=== PATIENT | female | born 1935 | race Caucasian/White ===

== ENCOUNTER → 2018-02-16 08:57 | Outpatient (CLI) | payer MEDICARE, OTHER, SELFPAY ==
--- NOTE | 2018-02-16 09:15 | RAD_ITS ---
STUDY: X-RAY - PELVIS AND RIGHT HIP REASON FOR EXAM: Female, 82 years old. Lateral hip pain TECHNIQUE: Radiological exam, hip, unilateral, with pelvis when performed; 2 or 3 views. 3 views. COMPARISON: None. FINDINGS: There is a non-specific bowel gas pattern. Normal visualized soft tissue structures. There is diffuse demineralization of the osseous structures. There is narrowing with cortical sclerosis and osteophyte formation of the sacroiliac joint consistent with degenerative osteoarthritic changes. Normal bilateral superior and inferior pubic rami. Normal pubic symphysis. Normal bilateral ischial tuberosities. Normal visualized femoral head. Normal acetabulum. There is moderate articular joint space narrowing of the hip. 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 No demonstrated fracture. However, hip and pelvic fractures in patients of this age can be subtle, if there are strong clinical suspicion of a fracture, recommend further evaluation with CT Electronically Signed: Du Cleaning MD at 8:36 EDT , Service support ,
== END ==
PROVIDERS: Family Provider Family Medicine; PCP Family Medicine; Visit Provider Nurse Practitioner Family
DX: M16.11 Unilateral primary osteoarthritis, right hip (principal)
CPT/HCPCS: 73502

== ENCOUNTER → 2018-04-06 13:25 | Outpatient (CLI) | payer MEDICARE, OTHER, SELFPAY | PROVIDERS: Family Provider Family Medicine; PCP Family Medicine; Visit Provider Family Medicine | DX: N63.21 Unspecified lump in the left breast, upper outer quadrant (principal) | CPT/HCPCS: 76642; 77062; 77066; G0279 ==

== ENCOUNTER → 2018-04-06 13:28 | Outpatient (CLI) | payer MEDICARE, OTHER, SELFPAY | PROVIDERS: Family Provider Family Medicine; PCP Family Medicine; Visit Provider Family Medicine | DX: Z00.00 Encounter for general adult medical examination without abnormal findings (principal) ==

== ENCOUNTER → 2018-05-30 11:35 | Outpatient (CLI) | payer MEDICARE, OTHER, SELFPAY | PROVIDERS: Family Provider Family Medicine; PCP Family Medicine; Visit Provider Family Medicine | DX: R19.7 Diarrhea, unspecified (principal) | CPT/HCPCS: 87177; 87209; 87493; 87506 ==

== ENCOUNTER 2018-05-31 10:00 | Outpatient (RCR) | payer MEDICARE, OTHER, SELFPAY ==
--- NOTE | 2018-05-15 11:30 | HP.PTEVAL ---
Patient's Visit Information SONYA DE LA CRUZ is a 83 year old F referred to Physical Therapy by ABILIO Perea with a diagnosis of LUMBAR DDD AND RADIC., RIGHT HIP TROCH BURSITIS AND TENDONITIS AND OA.. Date of Evaluation: 05/15/18 Physical Therapist: Domenica Cruz - Visit Plan Frequency: 2-3x /Week Duration: 4-6 Weeks Plan: POSTURE CORRECTION/STRENGTHENING, INSTRUCTION IN APPROPRIATE BODY MECHANICS AND ACTIVITY MODIFICATIONS. DLS STARTING WITH A NEUTRAL SPINE PROGRESSING ROM TOLERATED. SONYA LE ROM, STRETCHING AND STRENGTHENING. HEP INSTRUCTION. - Subjective Subjective: Work/Leisure: RETIRED. LIKES TO VACATION IN [place] FROM AUG TO NOVEMBER BUT [place]E HAS A LOT OF STEPS. NOVEMBER 2017 HAD A LOT OF RIGHT HIP PAIN DOING THE STEPS. SHE REPORTS SHE WAS ACTUALLY DOING BETTER THEN THAN NOW WITH STEPS. Present symptoms: SONYA LOW BACK AND RIGHT HIP PAIN INTO THIGH. PATIENT OTHERWISE DENIES PAIN, NUMBNESS AND TINGLING. DIFFICULTY IN TERMS OF STRENGTH AND/OR PAIN WITH STANDING AND WALKING INCLUDING STEPS. Present since: RIGHT HIP PAIN: NOVEMBER 2017 LOW BACK: CHRONIC. Pain Scale: WORST 6/10, LEAST 0/10. Currently: 0/10 SITTING IN CLINIC TODAY. WALKING IN PT TODAY 2/10. Commenced as a result of: NO APPARENT REASON. Symptoms at onset: RIGHT HIP/THIGH PAIN LOCATION HAS STAYED THE SAME. Worse: STANDING, WALKING, STEPS. Better: SITTING. Disturbed sleep: NO. Previous history/Previous treatment: PATIENT REPORTS SHE WAS GETTING SOME PHYSICAL THERAPY IN [place] FOR BALANCE AND AT ABOUT THE FOURTH APPOINTMENT HER RIGHT HIP STARTED HURTING AND SHE HAS BEEN DEALING WITH IT ALL SUMMER. DR. BRODY DIAGNOSED HER WITH BURSITIS AND SHE HAS HAD 3 INJECTIONS THAT HELPED SOME TEMPORARILY ONLY. HER LAST INJECTION WAS A MONTH AGO. SHE REPORTS ALL 3 OF THESE INJECTIONS WERE IN HER HIP BUT TWO OF THEM WERE JUST IN THE OFFICE - THE OTHER ONE THEY PUT HER TO SLEEP FOR. NO BACK SURGERY BUT MAYBE EMMY'S IN LOW BACK A COUPLE YEARS AGO BUT THEY NEVER LASTED LONG. Coughing/sneezing/straining: NEGATIVE. Gait: DISTANCE LIMITED. NO AD. GETS HARDER TO WALK AND MORE PAINFUL THE FURTHER SHE GOES. PATIENT FEELS LIKE SHE IS LIMPING PRETTY MUCH ALL THE TIME NOW ON THAT RIGHT LE. Difficulty initiating urinatin: NO. Accidents: NO. PATIENT DENIES ANY FALLS. Unexplained weight loss: NO. Imaging: IMPRESSION: Demineralization of the osseous structures with right hip arthrosis. No. demonstrated fracture. However, hip and pelvic fractures in patients of. this age can be subtle, if there are strong clinical suspicion of a. fracture, recommend further evaluation with CT. PMH: HTN, MILD DEPRESSION. Recent major surgery: UNREMARKABLE. OTHER: PATIENT REPORTS SHE TRIED STOPPING THE SILVER SNEAKER CLASS BUT IT DIDN'T HELP SO SHE RESUMED 2 TIMES A WEEK. SHE USE TO COME 4 TIMES A WEEK BEFORE HER RIGHT HIP STARTED HURTING. - Objective Sitting/Standing Posture: POOR. RIGHT SHOULDER HIGHER THAN LEFT. RIGHT ILIAC CREST HIGHER THAN LEFT. Lordosis: REDUCED. Lateral shift: NO. Relevant shift: ? SCOLIOSIS. Active Correction of posture: NE. Other Observations: INDEP GAIT INTO PT WITHOUT ANY AD'S AND A MILD LIMP ON THE RIGHT LE. PATIENT IS ABLE TO INDEP'LY TRANSFER FROM SIT TO STAND WITHOUT UE ASSIST. SHE IS ABLE TO SLS ON EACH LE X APPROX 5 SEC WITHOUT UE ASSIST AND TESTING ON RIGHT LE ONLY MILDLY INCREASES PATIENTS C/O RIGHT HIP PAIN. INDEP GAIT UP STEPS WITH STEP TO PATTERN LEADING WITH LLE AND ONE HR. TRYING TO GO UP WITH RIGHT LE FIRST IS PAINFUL AND DIFFICULT WITH GREAT DEPENDENCE ON HR. SHE IS ABLE TO DESCEND STEPS RECIPCICALLY WITH ONE HR WITHOUT SIGNIFICANT DEVIATION AND MINIMAL DEPENDENCE ON HR. Motor deficit: SONYA LE STRENGTH GROSSLY 4/5 WITH MMT'ING EXCEPT RIGHT HIP AND KNEE 4-/5. Sensory deficit: SONYA LE LIGHT TOUCH SENSATION APPEARS INTACT AND SYMMETRICAL. ROM deficit: PATIENT HAS TIGHTNESS IN SONYA HIPS PRETTY SYMMETRICALLY INTO FLEX, EXT, ABD, IR AND ER AND ROM TESTING OF SONYA HIPS PRODUCES INCREASED PAIN IN THE RIGHT HIP ONLY. Reflexes: SONYA LE'S 2/3. Dural Signs: NEGATIVE SONYA LE DURAL SIGNS. Lumbar mvmt loss: flex - NIL. ext - KEITH. R SG - KEITH. L SG - KEITH. PATIENT DENIES INCREASED BACK OR HIP PAIN WITH LUMBAR ROM TESTING. Core strength: POOR. Palpation: MILD TENDERNESS WITH PALPATION OF SONYA SI JOINT REGIONS, RIGHT GREATER TROCH AND PROXIMAL 1/2 OF RIGHT LATERAL THIGH. OTHER: POSITIVE SONYA DEWEY TESTS RIGHT > LEFT - Goals Goal 1:: DECREASE C/O LOW BACK AND RIGHT HIP PAIN Goal Time Frame: 4-6 Weeks Goal 2:: IMPROVE STANDING AND WALKING FUNCTION INCLUDING ON STAIRS. Goal Time Frame: 4-6 Weeks Goal 3:: INSTRUCT IN PROPHYLAXIS Goal Time Frame: 4-6 Weeks - Rehabilitation Potential Rehabilitation Potential: Fair - Anticipated Interventions Patient/Client Instruction: Educate patient on: Plan of Care, Risk Factors, Benefits of Fitness Program For the Purpose of:: To improve self management Therapeutic Exercise to Include: Strength training, Body mechanics, Postural training, Flexibilty training, Gait and locomotor training, In an aquatic setting, Active ROM, Dynamic Lumbar Stabilization Comment: TRY LAND FIRST. CONSIDER AQUATIC THERAPY. For the Purpose of:: To decrease pain, To increase ROM, To improve muscle performance and motor function, To increase tolerance to activity/condition/position, To improve ability of physical actions for home/community/work/leisure, To improve gait and locomotor functions Cryotherapy (ice pack, ice massage): Yes Thermo therapy (hot pack): Yes Ultrasound (thermal/non thermal): Yes For the Purpose of:: To decrease pain, To decrease swelling/inflammation, To increase ROM, To improve nutrient delivery to tissue Thank you for the opportunity to evaluate your patient. For Medicare and Medicare HMO plans, please review the plan of care and approve it. It will need to be FAXED BACK to us at [phone] for Medicare purposes. Please let me know if there are questions or concerns regarding this plan of care. Physician Signature: Date:
--- NOTE | 2018-05-31 10:43 | HP.PTDCSUM ---
HP - PT D/C Summary It has been my pleasure to treat SONYA DE LA CRUZ under orders from ABILIO Perea, for the diagnosis of LUMBAR DDD AND RADIC., RIGHT HIP TROCH BURSITIS AND TENDONITIS AND OA. for a total of 7 visit(s). Discharge Date: Please see the following information for a summary of their discharge status. - Subjective Subjective: PATIENT REPORTS SHE HAD A LIGHT LAZER TREATMENT [facility] AFTER PT TUESDAY. AT THIS POINT SHE REPORTS SHE HASN'T SEEN A DIFFERENCE IN HER PAIN. SHE IS PLANNING TO TRY ABOUT 6 LIGHT LAZER TREATMENTS WITH ANOTHER ONE PENDING TODAY. PATIENT REPORTS SHE HAS BEEN DOING ALL OF THE HOME EX'S WITHOUT DIFFICULTY LONG SHE IS CAREFUL WITH THE CLAMS AND THE STANDING HIP ABD. OVER-ALL, PATIENT IS REPORTING NO CHANGES SINCE STARTING PT - Pain LOW BACK Pain Intensity (Out of 10): 0 RIGHT HIP/THIGH Pain Intensity (Out of 10): 2 RIGHT LEG Pain Intensity (Out of 10): 0 - Objective Objective/Function: UPON EXAM TODAY, THERE ARE NO SIGNIFICANT CHANGES SINCE INITIAL EVAL. Motor deficit: SONYA LE STRENGTH GROSSLY 4/5 WITH MMT'ING EXCEPT RIGHT HIP AND KNEE 4-/5. Sensory deficit: SONYA LE LIGHT TOUCH SENSATION APPEARS INTACT AND SYMMETRICAL. ROM deficit: PATIENT HAS TIGHTNESS IN SONYA HIPS PRETTY SYMMETRICALLY INTO FLEX, EXT, ABD, IR AND ER AND ROM TESTING OF SONYA HIPS PRODUCES INCREASED PAIN IN THE RIGHT HIP ONLY. Dural Signs: NEGATIVE SONYA LE DURAL SIGNS. Lumbar mvmt loss: flex - NIL. ext - KEITH. R SG - KIETH. L SG - KEITH. PATIENT DENIES INCREASED BACK OR HIP PAIN WITH LUMBAR ROM TESTING. Core strength: POOR. Palpation: MILD TENDERNESS WITH PALPATION OF THE RIGHT GREATER TROCH AND PROXIMAL 1/2 OF RIGHT LATERAL THIGH. ALSO MILD TENDERNESS IN DISTAL RIGHT IT BAND REGION. OTHER: POSITIVE DEWEY TESTS RIGHT. THIS PT RECOMMENDS PHYSICIAN FOLLOW UP DUE TO LACK OF PROGRESS. - Goals Goal 1:: DECREASE C/O LOW BACK AND RIGHT HIP PAIN Goal Progress: Not Progressing Goal 2:: IMPROVE STANDING AND WALKING FUNCTION INCLUDING ON STAIRS. Goal Progress: Not Progressing Goal 3:: INSTRUCT IN PROPHYLAXIS Goal Progress: Not Progressing - Plan Plan: D/C DUE TO LACK OF PROGRESS AND INDEP HEP. PATIENT AGREEABLE. - D/C Information If there are questions or concerns regarding this patient's physical therapy, please feel free to call me at [phone]. Thank you for the referral of this patient. Sincerely, Domenica Cruz
== END 2018-05-31 19:00 | disposition home or self-care (01) ==
LOC: PT 10:00
PROVIDERS: Family Provider Family Medicine; PCP Family Medicine; Referring Provider Nurse Practitioner Family; Visit Provider Nurse Practitioner Family
DX: M51.37 Other intervertebral disc degeneration, lumbosacral region (principal); M70.61 Trochanteric bursitis, right hip; M54.17 Radiculopathy, lumbosacral region; M79.10 Myalgia, unspecified site; M16.11 Unilateral primary osteoarthritis, right hip
CPT/HCPCS: 97035; 97110; 97140; 97162; 97530

== ENCOUNTER → 2018-12-11 15:02 | Outpatient (CLI) | payer MEDICARE, SELFPAY ==
--- NOTE | 2018-12-11 15:32 | CT_ITS ---
STUDY: CT ABDOMEN AND PELVIS WITH CONTRAST REASON FOR EXAM: Female, 83 years old. Right lower quadrant pain RADIATION DOSAGE (If Supplied By Facility): CTDIvol = ( 14.50 ) mGy, DLP = ( 541.06 ) mGycm TECHNIQUE: Transaxial images were obtained from the dome of the diaphragm to the symphysis pubis without oral contrast. 100 IV/Oral Isovue 300 was administered. Sagittal and coronal images were reconstructed. Individualized dose optimization techniques were used for this CT. COMPARISON: None. FINDINGS: Volume loss of the visualized left lung base with basilar atelectasis. The visualized portions of the heart are within normal limits. 5 mm or less cysts in the liver. Normal gallbladder and extrahepatic biliary system. Normal spleen. Normal pancreas. Normal bilateral adrenal glands. Normal right kidney. Normal left kidney. Small hiatal hernia. Normal small intestine. Diverticulosis of the colon. Questionable focal segmental circumferential narrowing of the colon at the hepatic flexure versus focal contraction. Correlate with colonoscopy if needed. The appendix is visualized and appears normal. Normal abdominal aorta. Normal inferior vena cava. Normal retroperitoneum. Normal urinary bladder. Normal uterus. Small fatty umbilical hernia. Mild degenerative vertebral changes. Moderate levoscoliosis. CT/Abdomen/Pelvis WITH Contrast IMPRESSION: Colonic diverticulosis. Small hiatal hernia. Questionable subsegmental cervical fracture narrowing of the colon at hepatic flexure versus contraction. Calling colonoscopy if needed. Small fatty umbilical hernia. Probable small hepatic cysts. Electronically Signed: Tru Moody DO at 18:13 EDT Tel [phone], Service support ,
[2018-12-11 17:51] LABS: CREATININE FINGERSTICK 1.3 mg/dL (0.55-1.02)
== END ==
PROVIDERS: Family Provider Family Medicine; PCP Family Medicine; Referring Provider Family Medicine; Visit Provider Family Medicine
DX: R10.9 Unspecified abdominal pain (principal)
CPT/HCPCS: 74177; Q9967

== ENCOUNTER → 2018-12-15 14:41 | Outpatient (CLI) | payer MEDICARE, OTHER, SELFPAY | PROVIDERS: Family Provider Family Medicine; PCP Family Medicine; Referring Provider Family Medicine; Visit Provider Family Medicine | DX: R19.7 Diarrhea, unspecified (principal) | CPT/HCPCS: 87493; 87506 ==

== ENCOUNTER → 2019-05-15 09:00 | Outpatient (CLI) | payer MEDICARE, OTHER, SELFPAY ==
--- NOTE | 2019-05-15 09:03 | US_ITS ---
STUDY: ABDOMINAL ULTRASOUND - RIGHT UPPER QUADRANT REASON FOR VISIT: Female, 84 years old right upper quadrant pain TECHNIQUE: Ultrasound evaluation of the right upper quadrant was performed with real-time and static tucker-scale imaging. TECHNICAL QUALITY: Limited. Examination limited by bowel gas. COMPARISON: None. FINDINGS: Liver: The liver measures 12.6 cm. There is normal echogenicity of the liver. The bile ducts are within normal limits. There is hepatic color flow. The direction of portal flow is hepatopetal. There is no demonstrated mass lesion. Gallbladder: Normal distended gallbladder. The gallbladder wall measures 1.7 mm. There is a negative sonographic Casas's sign. There is no pericholecystic fluid. There are no gallstones. Common Bile Duct (C.B.D.): The common bile duct measures 2.2 mm. Pancreas: Pancreatic tail was obscured by bowel gas. The body and head appeared within normal limits. There is normal echogenicity of the pancreas. There is no demonstrated pancreatic mass or cyst. Right Kidney: Normal size of the right kidney. The right kidney measures 10.3 x 4.7 x 5.4 cm. Normal renal cortex. The right cortex measures 1.3 cm. There is no demonstrated renal mass or cyst. There is no right hydronephrosis. US/Abdomen Limited IMPRESSION: The pancreatic tail was obscured by bowel gas. The remainder of the study is within normal limits. Electronically Signed: Reji Landaverde MD at 17:01 EDT , Service support ,
== END ==
PROVIDERS: Family Provider Family Medicine; PCP Family Medicine; Referring Provider Family Medicine; Visit Provider Family Medicine
DX: R10.11 Right upper quadrant pain (principal)
CPT/HCPCS: 76705

== ENCOUNTER → 2019-05-16 17:49 | Outpatient (CLI) | payer MEDICARE, SELFPAY | PROVIDERS: Family Provider Family Medicine; PCP Family Medicine; Referring Provider Family Medicine; Visit Provider Family Medicine | DX: R30.0 Dysuria (principal) ==

== ENCOUNTER → 2019-05-28 12:57 | Outpatient (CLI) | payer MEDICARE, OTHER, SELFPAY ==
--- NOTE | 2019-05-28 13:01 | NM_ITS ---
CLINICAL: 84-year-old female with reported history of right upper quadrant abdominal pain. RADIONUCLIDE HEPATOBILIARY SCINTIGRAPHY COMPARISON: Abdominal ultrasound report 05/15/2019 FINDINGS: Following the intravenous administration of 5.1 mCi of 99m Tc Mebrofenin, hepatobiliary images reveal: 1. Relatively prompt and homogeneous radiopharmaceutical concentration is noted by a normal sized liver. No parenchymal defects are identified. 2. Gallbladder activity is identified at 45 minutes post radiopharmaceutical administration. 3. Small intestinal tract is observed at 30 minutes following tracer injection. 4. Washout of the radiopharmaceutical by the hepatic parenchyma appears qualitatively normal. Cholecystokinin (0.02 ug/kg) was administered intravenously over a 30-minute period. The post CCK gallbladder ejection fraction calculated at 20 minutes following Cholecystokinin administration was noted to be 58.0 % (normal greater than 35%). During 30 minutes of post CCK imaging, there is no scintigraphic evidence of reflux of the radiotracer into the common hepatic duct or refilling of the gallbladder. OK/Hepatobilliary Img w/Pharm Int IMPRESSION: 1. NORMAL 99m Tc Mebrofenin hepatobiliary imaging examination with Cholecystokinin. A. A gallbladder ejection fraction calculated to be greater than 35% following the administration of Cholecystokinin makes the probability of functional hepatobiliary disease (gallbladder and/or sphincter of Oddi dyskinesia) and/or organic hepatobiliary disease (chronic acalculous cholecystitis and/or cystic duct syndrome) to be low. (Andrew Sal et al, Journal of Nuclear Medicine 32:1695, 1991). Electronically Signed: Gabe Thacker DO at 22:15 EDT Tel , Service support ,
== END ==
PROVIDERS: Family Provider Family Medicine; PCP Family Medicine; Referring Provider Family Medicine; Visit Provider Family Medicine
DX: R19.7 Diarrhea, unspecified (principal)
CPT/HCPCS: 78227; A9537; J2805

== ENCOUNTER → 2019-06-25 11:52 | Outpatient (CLI) | payer MEDICARE, OTHER, SELFPAY ==
--- NOTE | 2019-06-25 11:58 | RAD_ITS ---
STUDY: X-RAY - UNILATERAL RIBS ( RIGHT ) WITH CHEST REASON FOR EXAM: Female, 84 years old. Pain. TECHNIQUE - RIBS: 4 view(s) of the ribs. TECHNIQUE - CHEST: Single AP portable view of the chest. COMPARISON: None. FINDINGS - RIBS: Normal visualized ribs without a demonstrated fracture. FINDINGS - CHEST: The lungs are clear and expanded. There is no demonstrated pleural abnormality. Normal size heart. Normal mediastinum and harley. Normal visualized pulmonary arteries. There is atherosclerotic calcification of the aortic arch with tortuosity. Normal visualized thoracic spine. There is mild degenerative osteoarthritis of the bilateral shoulders. There is no demonstrated abnormality of the visualized soft tissue structures of the upper abdomen. RAD/Ribs Uni Min 3V w/PA Chest IMPRESSION: RIBS: No distinct right-sided rib fractures noted, right-sided ribs are within normal limits. CHEST: No acute cardiopulmonary disease. Electronically Signed: Carol Ann Ashley MD at 1:57 EST , Service support ,
== END ==
PROVIDERS: Family Provider Family Medicine; PCP Family Medicine; Referring Provider Family Medicine; Visit Provider Family Medicine
DX: M54.9 Dorsalgia, unspecified (principal)
CPT/HCPCS: 71101

== ENCOUNTER 2019-08-10 11:00 | Outpatient (RCR) | payer MEDICARE, OTHER, SELFPAY ==
--- NOTE | 2019-06-12 14:25 | HP.PTEVAL_ITS ---
Patient's Visit Information SONYA DE LA CRUZ is a 84 year old F referred to Physical Therapy by Karen Meier MD with a diagnosis of BACK PAIN. Date of Evaluation: 06/12/19 Physical Therapist: Domenica Cruz PT, Cert MDT - Visit Plan Frequency: 2x /Week Duration: 4-6 Weeks Plan: POSTURE CORRECTION/STRENGTHENING, INSTRUCTION IN APPROPRIATE BODY MECHANICS AND ACTIVITY MODIFICATIONS. DLS STARTING WITH A NEUTRAL SPINE PROGRESSING ROM TOLERATED. SONYA LE ROM, STRETCHING AND STRENGTHENING. HEP INSTRUCTION. *MINIMAL LIFTING > 10 LBS, BENDING, PUSHING, PULLING, TWISTING AND OVER HEAD EXTENSION FOR 4-6 WEEKS. - Subjective Findings: Present symptoms: RIGHT LOW BACK. Present since: ABOUT 9 MONTHS AGO. Pain Scale: WORST 8/10, LEAST 2/10. Currently: 3/10. Commenced as a result of: NO APPARENT REASON. Symptoms at onset: SAME. Worse: MOVING AROUND. WORSE IN THE MORNING. Better: SITTING IN RECLINER, LYING DOWN. Disturbed sleep: NO. Previous history/Previous treatment: PHYSICAL THERAPY FOR LOW BACK IN THE PAST BUT THIS PAIN IS DIFFERENT. H/O [facility]. WENT TO [facility] 6 WEEKS AGO. NO BACK SURGERY. LUMBAR EMMY'S - LAST ONE AT LEAST A COUPLE YEARS AGO. Coughing/sneezing/straining: POSITIVE. Gait: SLOWER AND MAYBE LIMPING ON RIGHT LE AT TIMES DUE TO THIS BACK PAIN. Difficulty initiating urinatin: NO. Accidents: NO. PATIENT DENIES ANY FALLS. Unexplained weight loss: NO. Imaging: ABDOMINAL US AND CAT SCAN RECENTLY WHICH WERE NEGATIVE PER PATIENT REPORT. GALLBLADDER RULLED OUT. NO RECENT BACK IMAGING. PMH: HTN, ANXIETY. OTHER: PATIENT REPORTS SHE ASKED DR. MEIER TO LET HER TRY PHYSICAL THERAPY FIRST BEFORE PAIN MGMT BECAUSE SHE REALLY DOESN'T WANT TO GET THE SHOTS (HISTORY WITH DR. BRODY). PATIENT REPORTS SHE LOST HER IN SEP OF THIS YEAR AND IT HAS BEEN VERY DIFFICULT. - Objective Sitting/Standing Posture: POOR. Lordosis: REDUCED. Active Correction of posture: BETTER. Other Observations: INDEP GAIT AND TRANSFERS WITHOUT ASS ISTIVE DEVICE. Motor deficit: SONYA LE'S GROSSLY 4-5/5 BUT HIPS GROSSLY 4-/5. UNABLE TO TRANSFER FROM FLOOR TO STAND WITHOUT UE ASSIST. Sensory deficit: SONYA LE LIGHT TOUCH SENSATION INTACT AND SYMMETRICAL. ROM deficit: SONYA LE'S WFL. Reflexes: SONYA LE'S 2/3. Dural Signs: POSITIVE RIGHT LE. Thoracic Mvmt Loss: DECREASED SONYA THORACIC ROTATION ROM - MOD - AND INCRASED PAIN WITH TESTING SONYA. Lumbar mvmt loss: flex - MIN - RIGHT BACK UPON RETURN. ext - KEITH - NE. R SG - KEITH - INCREASES RIGHT BACK PAIN. L SG - KEITH - INCREASES RIGHT BACK. Core strength: POOR. Palpation: MILD RIGHT LOWER THORACIC/LUMBAR TENDERNESS. - Goals Goal 1:: DECREASE C/O RIGHT BACK PAIN. Goal Time Frame: 4-6 Weeks Goal 2:: IMPROVE PERSONAL CARE, LIFTING, WALKING, SITTING, STANDING AND HOMEMAKING FUNCTION Goal Time Frame: 4-6 Weeks Goal 3:: INSTRUCT IN PROPHYLAXIS Goal Time Frame: 4-6 Weeks - Rehabilitation Potential Rehabilitation Potential: Fair - Anticipated Interventions Patient/Client Instruction: Educate patient on: Condition, Plan of Care, Risk Factors, Benefits of Fitness Program For the Purpose of:: To improve self management Therapeutic Exercise to Include: Strength training, Body mechanics, Postural training, Dynamic Lumbar Stabilization For the Purpose of:: To decrease pain, To improve muscle performance and motor function, To increase tolerance to activity/condition/position, To improve ability of physical actions for home/community/work/leisure, To improve gait and locomotor functions Cryotherapy (ice pack, ice massage): Yes Thermo therapy (hot pack): Yes Ultrasound (thermal/non thermal): Yes For the Purpose of:: To decrease pain, To decrease swelling/inflammation, To improve nutrient delivery to tissue Thank you for the opportunity to evaluate your patient. For Medicare and Medicare HMO plans, please review the plan of care and approve it. It will need to be FAXED BACK to us at [phone] for Medicare purposes. For Medicare only, by signing this I certify the plan of care. Please let me know if there are questions or concerns regarding this plan of care. Physician Signature: Date:
--- NOTE | 2019-07-12 10:02 | HP.PTREVAL_ITS ---
Karen Meier MD, It has been my pleasure to treat SONYA DE LA CRUZ over the last 10 visits for BACK PAIN. Please see the progress note below for an update on the physical therapy plan of care! Subjective: PATIENT REPORTS THE PAIN IS GETTING BETTER BUT IT STILL JABS HER SOMETIMES. PATIENT REPORTS SHE FEELS GOOD ABOUT THE WATER. WILL CONTINUE PROGR AM WITH MEMBERSHIP. ALSO DOING HEP ONCE A DAY. ABLE TO DO STEPS AT HOME RECIPRICALLY NOW. Objective/Function: PATIENTS PAIN IS NOW IMPROVING AND WOULD BENEFIT FROM CONTINUED PT FOR PROGRESSIONS SHE TRIES TO RESUME EX CLASS AND START INDEP POOL PROGRAM. Motor deficit: SONYA LE'S GROSSLY 4-5/5 BUT HIPS GROSSLY 4-/5. UNABLE TO TRANSFER FROM FLOOR TO STAND WITHOUT UE ASSIST YET. Sensory deficit: SONYA LE LIGHT TOUCH SENSATION INTACT AND SYMMETRICAL. ROM deficit: SONYA LE'S WFL. Reflexes: SONYA LE'S 2/3. Dural Signs: NEGATIVE SONYA LE'S NOW. Thoracic Mvmt Loss: DECREASED SONYA THORACIC ROTATION ROM - MOD - AND INCRASED PAIN WITH TESTING SONYA. Lumbar mvmt loss: flex - NIL - MILD RIGHT BACK UPON RETURN. ext - MOD- NE. R SG - KEITH - INCREASES RIGHT BACK PAIN. L SG - KEITH - INCREASES RIGHT BACK. Core strength: POOR Plan Plan: CONTINUE AQUATIC THERAPY ONE TIME A WEEK FOR PROGRESSIONS. MONITOR RIGHT LOW BACK PAIN. PATIENT IS GOING TO TRY TO RESUME SILVER SNEAKER CLASSES TWO TIMES A WEEK AND AND INDEP POOL PROGRAM ONCE A WEEK. PATIENT AGREEABLE. Goals Goal 1:: DECREASE C/O RIGHT BACK PAIN. Goal Time Frame: 4-6 Weeks Goal 2:: IMPROVE PERSONAL CARE, LIFTING, WALKING, SITTING, STANDING AND HOMEMAKING FUNCTION Goal Time Frame: 4-6 Weeks Goal 3:: INSTRUCT IN PROPHYLAXIS Goal Time Frame: 4-6 Weeks Anticipated Interventions Patient/Client Instruction: Educate patient on: Condition, Plan of Care, Risk Factors, Benefits of Fitness Program For the Purpose of:: To improve self management Therapeutic Exercise to Include: Strength training, Body mechanics, Postural training, Dynamic Lumbar Stabilization For the Purpose of:: To decrease pain, To improve muscle performance and motor function, To increase tolerance to activity/condition/position, To improve ability of physical actions for home/community/work/leisure, To improve gait and locomotor functions Cryotherapy (ice pack, ice massage): Yes Thermo therapy (hot pack): Yes Ultrasound (thermal/non thermal): Yes For the Purpose of:: To decrease pain, To decrease swelling/inflammation, To improve nutrient delivery to tissue Please do not hesitate to contact me at [phone] by phone or if you have questions or concerns regarding this new plan of care! Sincerely, Domneica Cruz, PT, Cert MDT
--- NOTE | 2019-08-10 11:23 | HP.PTDCSUM ---
HP - PT D/C Summary It has been my pleasure to treat SONYA DE LA CRUZ under orders from Karen Meier MD, for the diagnosis of BACK PAIN for a total of 15 visit(s). Discharge Date: 08/10/19 Please see the following information for a summary of their discharge status. - Subjective Subjective: PATIENT REPORTS THERE IS STILL SOMETHING CATCHING IN THERE. SHE IS LEAVING FOR [place]. SHE STATES THAT RIGHT NOW IT IS BEARABLE. IF IT IS STILL THERE WHEN SHE GETS BACK SHE STATES SHE WILL PROBABLY GO TO SEE DR. BRODY. STATES SHE IS GLAD SHE DID THE POOL. FEELS STRONGER BUT IT ISN'T HELPING HER PAIN MUCH. - Pain RIGHT BACK Pain Intensity (Out of 10): 1 - Overall Improvement % Improvement: 40 - Objective Objective/Function: PATIENT TOLERATED AQUATIC THERAPY WELL AND IS INDEP WITH BOTH POOL AND HOME EX PROGRAMS BUT STILL HAS RIGHT BACK PAIN. UPON EXAM TODAY THERE ARE NO SIGNIFICANT OBJECTIVE CHANGES COMPARED TO INITIAL EVAL BUT PATIENT IS FEELING SOME BETTER AND GLAD SHE CAME - Goals Goal 1:: DECREASE C/O RIGHT BACK PAIN. Goal Progress: Goal Met Goal 2:: IMPROVE PERSONAL CARE, LIFTING, WALKING, SITTING, STANDING AND HOMEMAKING FUNCTION Goal Progress: Not Progressing Goal 3:: INSTRUCT IN PROPHYLAXIS Goal Progress: Goal Met - Plan Plan: D/C DUE TO PATIENT LEAVING FOR [place]. RECOMMEND FOLLOW UP WITH DR. MEIER OR DR. BRODY NEEDED. PATIENT AGREEABLE. - D/C Information If there are questions or concerns regarding this patient's physical therapy, please feel free to call me at [phone]. Thank you for the referral of this patient. Sincerely, Domenica Cruz, PT, Cert MDT
== END 2019-08-10 19:00 | disposition home or self-care (01) ==
LOC: PT 11:00
PROVIDERS: Family Provider Family Medicine; PCP Family Medicine; Referring Provider Family Medicine; Visit Provider Family Medicine
DX: M54.9 Dorsalgia, unspecified (principal)
CPT/HCPCS: 97035; 97110; 97113; 97162; 97530

== ENCOUNTER → 2020-03-07 | Outpatient (CLI) | payer MEDICARE, OTHER, SELFPAY | END | disposition home or self-care (01) | LOC: LABSPEC 10:49 | PROVIDERS: PCP Family Medicine; Referring Provider Family Medicine; Visit Provider Family Medicine | DX: R30.0 Dysuria (principal); R35.1 Nocturia | CPT/HCPCS: 87086; 87088 ==

== ENCOUNTER → 2020-04-28 11:14 | Outpatient (CLI) | payer MEDICARE, OTHER, SELFPAY ==
[2020-04-28 13:01] LABS: Absolute Lymphocyte Count 1.01 X10^3/uL (0.83-4.51); Absolute Neutrophil Count 3.7 X10^3/uL (2.0-7.7); Basophil# 0.02 X10^3/uL; Basophil% 0.4 % (0-1); Eosinophil# 0.18 X10^3/uL; Eosinophils% 3.4 % (0-5); Hematocrit 37.4 % (37-47); Hemoglobin 12.4 g/dL (12.0-15.0); Lymphocyte # 1.01 X10^3/ul (4.0); Lymphocyte % 19.2 % (19-41); Mean Corp Hgb Conc 33.2 g/dL (32-36); Mean Corpuscular Hgb 32.2 pg (27.0-32.0); Mean Corpuscular Volume 97.1 fL (81-99); Mean Platelet Vol. 9.6 fl (6.2-12.0); Monocyte# 0.34 X10^3/uL; Monocyte% 6.5 % (0-10); NRBC Flagged by Analyzer 0 % (0-5); Neutrophil % 70.1 % (47-70); Platelet Count 271 K/mm3 (150-450); RBC Distribution Width CV 12.4 % (11.6-14.6); Red Blood Count 3.85 M/mm3 (4.2-5.4); White Blood Count 5.3 K/mm3 (4.4-11.0)
[2020-04-28 13:37] LABS: AST(SGOT) 22 U/L (15-37); Alanine Aminotransfer ALT/SGPT 22 U/L (13-56); Albumin, Serum 3.5 g/dL (3.2-5.0); Alkaline Phosphatase 82 U/L (45-117); Anion Gap 6 (5-15); BUN 19 mg/dL (7-18); BUN/Creat Ratio 25.8 RATIO (10-20); Calcium,Total 8.6 mg/dL (8.5-10.1); Chloride 105 mmol/L (98-107); Creatinine, Serum 0.74 mg/dL (0.55-1.02); EST Glomerular Filtration Rate 80 mL/min (>60); Est Glom Filt Rate - Afr Amer 97 mL/min (>60); Globulin 3.6 g/dL (2.2-4.2); Glucose 89 mg/dL (74-106); Potassium 4.3 mmol/L (3.5-5.1); Protein, Total 7.1 g/dL (6.4-8.2); Sodium Level 138 mmol/L (136-145)
== END ==
PROVIDERS: PCP Family Medicine; Referring Provider Family Medicine; Visit Provider Family Medicine
DX: R06.00 Dyspnea, unspecified (principal)
CPT/HCPCS: 36415; 80053; 84443; 85025

== ENCOUNTER → 2020-05-07 10:57 | Outpatient (CLI) | payer MEDICARE, OTHER, SELFPAY ==
--- NOTE | 2020-05-07 11:00 | ECHOD_ITS ---
Reason For Study: Dyspnea/SOB Procedure This was a 2D Doppler, Color Flow transthoracic echocardiogram. Exam performed in department. Left Ventricle Normal LV size. The estimated ejection fraction is 65 %. No evidence for diastolic dysfunction. No regional wall motion abnormalities noted. Right Ventricle Normal RV size. Normal systolic function. Atria Normal left atrium. Normal right atrium. No doppler evidence for ASD. Mitral Valve There is no mitral valve stenosis. Trivial mitral valve insufficiency. Tricuspid Valve There is no tricuspid stenosis. Trivial tricuspid valve insufficiency. Pulmonary artery systolic pressure is 20-25 mmHg. Aortic Valve Trisinus/trileaflet aortic valve. There is no aortic stenosis. Mild (1+) aortic valve insufficiency. Pulmonic Valve There is no pulmonic valvular stenosis. Trivial pulmonic valve insufficiency. Great Vessels Normal aortic root. Pericardium/Pleural No pericardial effusion. MMode/2D Measurements & Calculations LVIDd: 4.7 cm IVSd: 1.2 cm Ao root diam: 3.6 cm LVIDs: 2.5 cm LVPWd: 0.70 cm LA dimension: 3.7 cm FS: 46.3 % LAV(MOD-bp): 45.3 ml LVAd ap4: 24.3 cm2 SV(MOD-sp4): 47.8 ml LAV(MOD-bp) Indexed: 26.6 ml/m2 EDV(MOD-sp4): 69.6 ml LAV(MOD-sp2): 39.3 ml EDV(sp4-el): 72.9 ml LAV(MOD-sp4): 46.3 ml LVAs ap4: 12.4 cm2 ESV(MOD-sp4): 21.8 ml ESV(sp4-el): 21.1 ml EF(MOD-sp4): 68.7 % EF(sp4-el): 71.0 % SV(sp4-el): 51.8 ml LA A4 area: 17.6 cm2 RA A4 area: 16.2 cm2 Time Measurements MV dec time: 0.24 sec Doppler Measurements & Calculations MV E max juma: 81.5 cm/sec Lat Peak E' Juma: 4.6 cm/sec Med Peak E' Juma: 5.4 cm/sec MV A max juma: 99.3 cm/sec E/E' lat: 17.8 E/E' med: 15.0 MV E/A: 0.82 MV V2 max: 100.9 cm/sec MV P1/2t max juma: 65.4 cm/sec Ao V2 max: 138.7 cm/sec MV max P.1 mmHg MV P1/2t: 103.8 msec Ao max P.7 mmHg MV V2 mean: 43.8 cm/sec MV mean P.94 mmHg MV dec slope: 184.5 cm/sec2 MV V2 VTI: 31.4 cm MVA(P1/2t): 2.1 cm2 AI max juma: 451.2 cm/sec LV V1 max: 107.0 cm/sec PA V2 max: 112.7 cm/sec AI max P.4 mmHg LV V1 max P.6 mmHg AI dec slope: 206.8 cm/sec2 AI P1/2t: 638.9 msec TR max juma: 225.5 cm/sec PI dec slope: 76.9 cm/sec2 TR max P.3 mmHg Interpretation Summary The estimated ejection fraction is 65 %. No evidence for diastolic dysfunction. Trivial mitral valve insufficiency. Mild (1+) aortic valve insufficiency. Ordering Physician: Karen Meier Referring Physician: Karen Meier Performed By: Lalo Reeves RCS
== END ==
PROVIDERS: PCP Family Medicine; Referring Provider Family Medicine; Visit Provider Family Medicine
DX: R06.00 Dyspnea, unspecified (principal)
CPT/HCPCS: 93306

== ENCOUNTER → 2020-07-02 13:59 | Outpatient (CLI) | payer MEDICARE, OTHER, SELFPAY ==
--- NOTE | 2020-07-02 14:03 | RAD_ITS ---
Previous lumbar spine x-rays obtained on 03/22/2013 INDICATION: back pain EXAMINATION/TECHNIQUE: X-RAY - XR Spine Lumbar Min 4 Views COMPARISON: Previous lumbar spine x-rays obtained on 03/22/2013 FINDINGS: Studies of the lumbar spine in 5 projections including obliques was performed. There is moderate levoscoliosis involving the mid lumbar spine in the degree of scoliosis has increased when compared with the previous study obtained on 03/22/2013. No compression fractures are visualized however there is sclerosis of the posterior articular facets at the L3-4, L4-5 and L5-S1 levels due to mild degenerative arthritis. 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 Electronically Signed: Claus Galo, at 10:51 EST Tel , Service support ,
== END ==
PROVIDERS: PCP Family Medicine; Referring Provider Family Medicine; Visit Provider Family Medicine
DX: M54.9 Dorsalgia, unspecified (principal)
CPT/HCPCS: 72110

== ENCOUNTER → 2021-01-01 13:13 | Outpatient (CLI) | payer MEDICARE, SELFPAY ==
--- NOTE | 2021-01-01 13:16 | BI_ITS ---
MAMMOGRAPHY - BILATERAL SCREENING REASON FOR EXAM: Female, 85 years old. Routine annual screening examination. PERTINENT HISTORY: Non-contributory. Remote left excisional breast biopsy. TECHNIQUE: Digital bilateral breast chante (3D mammographic acquisition) in the CC and MLO projections. 2-D mediolateral oblique (MLO) and craniocaudad (CC) views of both breasts were obtained. CAD: Full Field Digital Mammography with Computer Added Detection was performed. COMPARISON: Comparison is made with prior study dated 04/06/2018 and 02/09/2017. FINDINGS: Breast Composition: The breasts are heterogeneously dense, which may obscure small masses. There are no dominant masses or suspicious calcifications. Stable benign-appearing bilateral axillary lymph nodes as well as stable bilateral calcifications. No other significant abnormalities are identified. There has been no significant change since the prior study. BI/SCREENING MAMM (CAD), BILAT IMPRESSION: Stable bilateral screening mammogram. Yearly follow-up mammogram recommended. (A) ASSESSMENT CATEGORY: BIRADS Category 2: Benign. A letter regarding these results will be sent to the patient by the facility within 30 days. Approximately 10% of breast cancers are not detected by mammography. A normal mammogram should not delay biopsy of a clinically suspicious abnormality. [id number] Electronically Signed: Chip Mora MD at 15:03 EDT , Service support ,
== END ==
PROVIDERS: PCP Family Medicine; Referring Provider Family Medicine; Visit Provider Family Medicine
DX: Z12.31 Encounter for screening mammogram for malignant neoplasm of breast (principal)
CPT/HCPCS: 77067

== ENCOUNTER → 2021-07-21 15:29 | Outpatient (CLI) | payer MEDICARE, SELFPAY ==
[2021-07-21 18:02] LABS: Anion Gap 5 (5-15); BUN 17 mg/dL (7-18); BUN/Creat Ratio 23.6 RATIO (10-20); Calcium,Total 9.2 mg/dL (8.5-10.1); Chloride 106 mmol/L (98-107); Cholesterol 223 mg/dL (200); Creatinine, Serum 0.72 mg/dL (0.55-1.02); EST Glomerular Filtration Rate 82 mL/min (>60); Est Glom Filt Rate - Afr Amer 99 mL/min (>60); Glucose 85 mg/dL (74-106); High Density Lipoprotein 70 mg/dL; Sodium Level 139 mmol/L (136-145); Triglycerides 200 mg/dL; Very Low Density Lipoprotein 40 mg/dL (5-40)
== END ==
PROVIDERS: PCP Family Medicine; Visit Provider Family Medicine
DX: I10 Essential (primary) hypertension (principal)
CPT/HCPCS: 36415; 80048; 80061

== ENCOUNTER → 2021-11-27 | Outpatient (CLI) | payer MEDICARE, SELFPAY ==
[2021-11-27 15:39] LABS: Anion Gap 5 (5-15); BUN 15 mg/dL (7-18); BUN/Creat Ratio 19.4 RATIO (10-20); Calcium,Total 8.7 mg/dL (8.5-10.1); Chloride 103 mmol/L (98-107); Cholesterol 223 mg/dL (200); Creatinine, Serum 0.78 mg/dL (0.55-1.02); EST Glomerular Filtration Rate 75 mL/min (>60); Est Glom Filt Rate - Afr Amer 91 mL/min (>60); Glucose 94 mg/dL (74-106); High Density Lipoprotein 63 mg/dL; Potassium 4.2 mmol/L (3.5-5.1); Sodium Level 135 mmol/L (136-145); Triglycerides 182 mg/dL; Very Low Density Lipoprotein 36 mg/dL (5-40)
== END | disposition home or self-care (01) ==
LOC: MFPLAB 11:56
PROVIDERS: PCP Family Medicine; Referring Provider Family Medicine; Visit Provider Family Medicine
DX: I10 Essential (primary) hypertension (principal)
CPT/HCPCS: 36415; 80048; 80061

== ENCOUNTER → 2022-07-07 | Outpatient (CLI) | payer MEDICARE, SELFPAY ==
[2022-07-07 11:33] LABS: Mucous, Urine 0 SEEN /hpf (<or=2+); Squamous Epithelial Cells - UA 0 SEEN /hpf (5-10)
[2022-07-07 12:21] LABS: Color, Urine Straw (Yellow); Glucose, Dipstick Normal (Normal); Ketone-Dipstick Negative (Negative); Leukocyte Esterase-Dipstick 500 /ul (Negative); Nitrite-Dipstick Positive (Negative); Occult Blood-Urine 25 /ul (Negative); Protein-Dipstick 15 mg/dl (Negative); Urine Bilirubin Dipstick Negative (Negative); Urine Clarity Sl. Cloudy (Clear); Urine Urobilinogen Normal (Normal)
[2022-07-07 12:31] LABS: Bacteria 4+ /hpf (None Seen); Red Blood Cells-Urine 10-25 SEEN /hpf (0-5); White Blood Cells 25-50 SEEN /hpf (0-5)
== END | disposition home or self-care (01) ==
LOC: LABSPEC 11:30
PROVIDERS: PCP Family Medicine; Referring Provider Family Medicine; Visit Provider Family Medicine
DX: N39.0 Urinary tract infection, site not specified (principal)
CPT/HCPCS: 81001; 87077; 87086; 87088; 87186

== ENCOUNTER → 2022-08-04 | Outpatient (CLI) | payer MEDICARE, SELFPAY ==
--- NOTE | 2022-08-04 13:44 | BI_ITS ---
MAMMOGRAPHY - BILATERAL SCREENING REASON FOR EXAM: Female, 87 years old. Routine annual screening examination. PERTINENT HISTORY: Bilateral biopsies in 1999. Remote left excisional biopsy. No reported family history of breast cancer. TECHNIQUE: Digital bilateral breast selene (3D mammographic acquisition) in the CC and MLO projections. 2-D mediolateral oblique (MLO) and craniocaudad (CC) views of both breasts were obtained. CAD: Full Field Digital Mammography with Computer Added Detection was performed. COMPARISON: 01/01/2021, 04/06/2018. FINDINGS: Breast Composition: The breasts are heterogeneously dense, which may obscure small masses. There are no dominant masses or suspicious calcifications. Stable bilateral benign-appearing breast calcifications. Stable right breast biopsy marker. No other significant abnormalities are identified. There has been no significant change since the prior study. BI/SCRN MAMM (CAD)W/SELENE BILAT IMPRESSION: Stable bilateral screening mammogram. Yearly follow-up mammogram recommended. (A) ASSESSMENT CATEGORY: BIRADS Category 2: Benign. A letter regarding these results will be sent to the patient by the facility within 30 days. Approximately 10% of breast cancers are not detected by mammography. A normal mammogram should not delay biopsy of a clinically suspicious abnormality. Electronically Signed: Jeet Casillas, at 12:01 EST ,
== END | disposition home or self-care (01) ==
LOC: OPBI 13:43
PROVIDERS: PCP Family Medicine; Visit Provider Family Medicine
DX: Z12.31 Encounter for screening mammogram for malignant neoplasm of breast (principal)
CPT/HCPCS: 77063; 77067

== ENCOUNTER → 2022-11-26 | Outpatient (CLI) | payer MEDICARE, SELFPAY | END | disposition home or self-care (01) | PROVIDERS: PCP Family Medicine; Referring Provider Family Medicine; Visit Provider Family Medicine | DX: N39.0 Urinary tract infection, site not specified (principal) | CPT/HCPCS: 87086; 87088 ==

== ENCOUNTER → 2022-11-30 | Outpatient (CLI) | payer MEDICARE, SELFPAY ==
[2022-11-30 11:24] LABS: Bacteria 0 SEEN /hpf (None Seen); Mucous, Urine 0 SEEN /hpf (<or=2+); Red Blood Cells-Urine 0 SEEN /hpf (0-5)
[2022-11-30 13:11] LABS: Color, Urine Yellow (Yellow); Glucose, Dipstick Normal (Normal); Ketone-Dipstick Negative (Negative); Leukocyte Esterase-Dipstick 25 /ul (Negative); Nitrite-Dipstick Negative (Negative); Occult Blood-Urine Negative /ul (Negative); Protein-Dipstick 15 mg/dl (Negative); Urine Bilirubin Dipstick Negative (Negative); Urine Clarity Sl. Cloudy (Clear); Urine Urobilinogen Normal (Normal); Urine pH 6.5 (5.0 - 8.0)
[2022-11-30 13:22] LABS: Squamous Epithelial Cells - UA 0-5 SEEN /hpf (5-10); White Blood Cells 0-5 SEEN /hpf (0-5)
== END | disposition home or self-care (01) ==
LOC: MFPLAB 11:00
PROVIDERS: PCP Family Medicine; Visit Provider Family Medicine
DX: R39.9 Unspecified symptoms and signs involving the genitourinary system (principal)
CPT/HCPCS: 81001; 87086

== ENCOUNTER 2023-03-12 20:26 | Emergency (ER) | payer MEDICARE, SELFPAY ==
[2023-03-12 20:28] VITALS: BP 169/80; PULSE 64; RESP 16; TEMP 36.2; O2SAT 97; BMI 24.7
[2023-03-12 20:32] VITALS: BP 169/80; PULSE 64; RESP 16; TEMP 36.2; O2SAT 97
--- NOTE | 2023-03-12 20:46 | CT_ITS ---
EXAM: CT ABDOMEN AND PELVIS WITH INTRAVENOUS CONTRAST CLINICAL INDICATION: abdominal pain TECHNIQUE: Helically acquired images were obtained of the abdomen and pelvis with intravenous contrast. This CT exam was performed using one or more of the following dose reduction techniques: automated exposure control, adjustment of the mA and/or kV according to patient size, and/or use of iterative reconstruction technique. CONTRAST: IV 100mL Isovue-370 RADIATION DOSE: CTDIvol = 14.70 mGy, DLP = 595.67 mGy-cm. COMPARISON: December 11, 2018. FINDINGS: LOWER THORAX: Minimal chronic change at the left lung base, bronchiectasis and mild linear scarring. No cardiomegaly. No significant pericardial effusion. ABDOMEN: LIVER: At least 3 tiny subcentimeter presumed hepatic cysts are similar to prior exam. GALLBLADDER AND BILE DUCTS: Unremarkable. No calcified gallstones. No gallbladder distention or wall edema. No intra- or extrahepatic biliary ductal dilation. PANCREAS: Mildly prominent pancreatic duct in the proximal pancreas appears similar to prior exam. No focal cystic or solid mass. SPLEEN: Unremarkable. Normal size without focal cystic or solid mass. ADRENALS: Unremarkable. No nodules. KIDNEYS AND URETERS: Unremarkable. Normal renal size and position. No hydronephrosis. STOMACH AND BOWEL: Small duodenal diverticulum projecting medially from the second part of the duodenum, larger diverticulum projecting superiorly near the ligament of Treitz contains fluid and gas and measures 2.8 cm, it was 1.8 cm. No obvious inflammation. Mildly thick-walled appearance of a few jejunal loops in the left upper quadrant, mildly prominent fluid and gas-filled small bowel loops in the midabdomen. Multiple tabletlike structures layering dependently in the moderately distended fluid-filled cecum. Mild gas, fluid and stool in the colon. Moderate diverticulosis of mildly redundant sigmoid colon. Mild stool in the rectum. PELVIS: APPENDIX: Normal small appendix thought to be seen at least partially on sagittal images. BLADDER: Unremarkable. REPRODUCTIVE: Unremarkable as visualized. No mass. ABDOMEN and PELVIS: INTRAPERITONEAL SPACE: Unremarkable. No ascites or other fluid collection. No free air. BONES/JOINTS: Moderate levoscoliosis centered at L1-2. No suspicious lytic or blastic abnormality. SOFT TISSUES: Similar small fat-containing right inguinal region hernia and slight bulging on the left. VASCULATURE: Mild atherosclerotic changes of aortoiliac vessels, no tobias aneurysm or dissection. LYMPH NODES: Unremarkable. No enlarged lymph nodes. OTHER FINDINGS: Minimal bulging discs, mild vacuum discs. No suspicious bone lesions. CT/Abdomen/Pelvis W IV Cont ONLY IMPRESSION: 1. Mildly thick-walled enhancing urinary bladder may be due to UTI. 2. Moderate fluid in the cecum. Mildly prominent small bowel contents. Cannot exclude mild enterocolitis in the appropriate clinical setting. 3. Larger diverticulum at the duodenal-jejunal junction. No associated inflammation or perforation. 4. Ultrasound with small fat-containing groin hernias, larger on the right. 5. Moderate diverticulosis, no evidence of acute diverticulitis or appendicitis. Electronically Signed: Lyndsey Herrera MD at 23:09 EDT ,
--- NOTE | 2023-03-12 20:48 | EDS_ITS ---
HPI HPI - GI History of Present Illness Chief Complaint: Abd Pain Detail of Chief Complaint: Abdominal pain Informant: patient Abdominal Pain/Flank Pain Maximum Severity: 8/10 Nausea/Vomiting/Emesis GI Symptom: Positive for Nausea and Vomiting Narrative Narrative: Patient presents the emergency department with complaint of abdominal pain that started about 2 hours ago. Patient states that she was at rest watching television when she noted a discomfort to the right lower abdomen. She also felt a lump to that area. She took some Tums and on arrival to the emergency department she vomited x1. She denies fever. She denies diarrhea. She denies blood in the urine or urinary symptoms. She is never had discomfort like this before. Rated her pain an 8 out of 10. [facility] Medical History (Updated 03/12/23 @ 22:[address] Maria Del Carmen Escobar DO) Anxiety Depression HTN (hypertension) Pulmonary embolism Home Medications fluoxetine 10 mg capsule 10 mg PO DAILY 02/26/22 [History Last Taken Unknown] lisinopril 20 mg tablet 20 mg PO DAILY 03/12/23 [History Last Taken Unknown] Allergy/AdvReac Type Severity Reaction Status Date / Time No Known Allergies Allergy Verified 03/12/23 20:33 Family History no significant family his Surgical History no surgical history Social History (Updated 03/12/23 @ 20:41 by Roxanna Britt) Smoking Status: Smoker, status unknown ROS ROS ED Review of Systems ROS Unobtainable: other Constitutional Constitutional ED: Reports lethargy; Denies chills, fever(s), sweats or weight loss Eyes Eyes: Denies blurry vision, change in vision or diplopia ENT ENT ED: Denies rhinorrhea or sore throat Cardiovascular Cardiovascular: Denies chest pain, orthopnea or racing heartbeat Respiratory/Chest Respiratory/Chest: Denies cough, dyspnea, dyspnea on exertion, orthopnea or sputum Gastrointestinal Gastrointestinal: Reports abdominal pain, nausea and vomiting; Denies diarrhea Genitourinary Genitourinary ED: Denies dysuria, hematuria or urinary frequency Musculoskeletal Musculoskeletal: Denies arthralgias, back pain, myalgias or neck pain Integumentary Denies abscess, Abrasions or rash Neurologic Neurologic: Denies headache(s) or weakness Psychiatric Psychiatric: Denies anxiety, depression or suicidal thoughts Endocrine Endocrinology: Denies polydipsia, polyphagia or polyuria Hematologic/Lymphatic Hematologic/Lymphatic: Denies easy bleeding, easy bruising or lymphadenopathy Allergic/Immunologic Allergic/Immunologic ED: Denies mouth swelling, tongue swelling or urticaria EXAM Physical Exam Const Vital Signs: 03/12/23 20:28 03/12/23 20:32 Temperature 97.1 F L 97.1 F L Temperature Source Temporal Temporal Pulse Rate 64 64 Respiratory Rate 16 16 Blood Pressure 169/80 H 169/80 H Blood Pressure Mean 109 109 Pulse Ox 97 97 Oxygen Delivery Method Room Air Room Air Positive well nourished and well developed General Appearance ED: well developed and NAD HEENT Reports TM's clear and moist mucous membranes normocephalic and atraumatic; Negative for trauma or tenderness Tympanic Membrane ED: Yes TM's clear Eyes PERRL and EOMs intact bilaterally General Eye ED: Negative for pale conjunctiva or scleral icterus Neck no lymphadenopathy, supple and no JVD General: Negative for tenderness Chest Wall inspection of chest normal and palpation of chest normal Chest: Negative for tenderness Resp normal respiratory effort and clear to auscultation bilaterally Effort and Inspection: Negative for respiratory distress or pain with movement Auscultation: Negative for rhonchi, wheezes or diminished lung sounds Cardio regular rate, regular rhythm, S1 normal heart sound, S2 normal heart sound and no murmurs Peripheral Pulses: pulses 2+ throughout GI normal to inspection, nondistended, normoactive bowel sounds, soft to palpation, non-distended and no masses GI Narrative: Patient has a soft tissue mass in the right lower quadrant that is tender to palpation. Clinically consistent with a incarcerated hernia. There is no discoloration to the skin noted. Back/Spine no CVA tenderness and no thoracic nor lumbar tenderness Extremity normal to inspection General Extremety ED: Negative for edema General Extremity: Negative for edema Neuro oriented x3, CN's II-XII intact bilaterally, no sensory deficits noted and gait normal Sensorium / Orientation: awake, alert, oriented to person, oriented to place and oriented to time Motor Exam: strength 5/5 throughout and strength abnormal Psych mental status grossly normal Skin no rashes or lesions noted and no wounds MDM MDM MDM Narrative Medical decision making narrative: Patient presents to the emergency department with right lower quadrant abdominal pain x2 hours and 1 episode of vomiting. On exam she is noted to have what I feel is an incarcerated right inguinal hernia. While having patient lie flat I was able to easily manipulate and reduce the hernia. Patient had immediate pain relief with this. CBC with differential obtained was normal. Chemistries unremarkable. Lactate was 1.0. I ordered a CT scan of the abdomen pelvis to evaluate further. Case was discussed with general surgeon on-call Dr. Beverly Christianson prior to CT results. If CT unremarkable she can follow-up as an outpatient for scheduling for operative herniorrhaphy. Patient remained pain- free in the emergency department. Care of patient turned over to evening p phillip awaiting CT results and final disposition. Lab Data Attestation: I reviewed the patient's lab results. Labs: Laboratory Results - last 24 hr 03/12/23 21:00 WBC 8.0 RBC 3.83 L Hgb 12.3 Hct 36.6 L MCV 95.6 MCH 32.1 H MCHC 33.6 RDW Std Deviation 42.5 RDW Coeff of Lamar 12.1 Plt Count 231 MPV 8.9 Immature Gran % (Auto) 0.400 Neut % (Auto) 74.7 H Lymph % (Auto) 15.2 L Talbot % (Auto) 7.6 Eos % (Auto) 1.7 Baso % (Auto) 0.4 Absolute Neuts (auto) 6.0 Absolute Lymphs (auto) 1.22 Nucleated RBC % 0 Sodium 134 L Potassium 4.0 Chloride 101 Carbon Dioxide 27.0 Anion Gap 6 BUN 26 H Creatinine 1.00 Estim Creat Clear Calc 34.87 Est GFR (MDRD) Af Amer 68 Est GFR (MDRD) Non-Af 56 L BUN/Creatinine Ratio 26.0 H Glucose 122 H Lactic Acid 1.0 Calcium 9.0 Discharge Plan Triage Chief Complaint: Abd Pain ED Provider: Maria Del Carmen Escobar Dx/Rx/DC Orders Clinical Impression: Abdominal pain, Inguinal hernia Instructions: ED Hernia (Adult) Prescriptions: No Action fluoxetine 10 mg capsule 10 mg PO DAILY Patient Comments: TAKE 1 CAPSULE BY MOUTH EVERY DAY lisinopril 20 mg tablet 20 mg PO DAILY Patient Comments: TAKE 1 TABLET BY MOUTH EVERY DAY DO NOT TAKE WITH PROPRANOLOL Primary Care Provider: Karen Meier Referrals: Karen Meier MD [Primary Care Provider] - Kristen Christianson MD [Med Staff - Active Staff] - 3-5 Days Disposition Disposition: Home, Self Care
[2023-03-12] MEDS: 0.9% Normal Saline 1,000 ML 125 ML IV (21:07)
[2023-03-12 21:11] LABS: Absolute Lymphocyte Count 1.22 X10^3/uL (0.83-4.51); Basophil# 0.03 X10^3/uL; Basophil% 0.4 % (0-1); Eosinophil# 0.14 X10^3/uL; Eosinophils% 1.7 % (0-5); Hematocrit 36.6 % (37-47); Hemoglobin 12.3 g/dL (12.0-15.0); Lymphocyte # 1.22 X10^3/ul (0.83-4.51); Lymphocyte % 15.2 % (19-41); Mean Corp Hgb Conc 33.6 g/dL (32-36); Mean Corpuscular Hgb 32.1 pg (27.0-32.0); Mean Corpuscular Volume 95.6 fL (81-99); Mean Platelet Vol. 8.9 fl (6.2-12.0); Monocyte# 0.61 X10^3/uL; Monocyte% 7.6 % (0-10); NRBC Flagged by Analyzer 0 % (0-5); Neutrophil # 5.98 X10^3/uL (2.7-7.7); Neutrophil % 74.7 % (47-70); Platelet Count 231 K/mm3 (150-450); RBC Distribution Width CV 12.1 % (11.6-14.6); RBC Distribution Width SD 42.5 fl (35.1-43.9); Red Blood Count 3.83 M/mm3 (4.2-5.4)
[2023-03-12 21:23] LABS: Anion Gap 6 (5-15); BUN 26 mg/dL (7-18); Chloride 101 mmol/L (98-107); EST Glomerular Filtration Rate 56 mL/min (>60); Est Glom Filt Rate - Afr Amer 68 mL/min (>60); Estimated Creatinine Clearance 34.87 ml/min; Glucose 122 mg/dL (74-106); Sodium Level 134 mmol/L (136-145)
[2023-03-12 23:57] VITALS: BP 147/83; PULSE 64; RESP 16; O2SAT 97
== END 2023-03-12 23:59 | disposition home or self-care (01) ==
PROVIDERS: Emergency Provider Emergency Medicine; PCP Family Medicine; Visit Provider Emergency Medicine
DX: K40.30 Unilateral inguinal hernia, with obstruction, without gangrene, not specified as recurrent (principal); I10 Essential (primary) hypertension; F17.200 Nicotine dependence, unspecified, uncomplicated; Z79.899 Other long term (current) drug therapy
CPT/HCPCS: 74177; 80048; 83605; 85025; 96360; 96361; 99282; J7030; Q9967; A4216

== ENCOUNTER → 2023-03-17 | Outpatient (CLI) | payer MEDICARE, SELFPAY | END | disposition home or self-care (01) | LOC: MFPLAB 13:53 → LABSPEC 13:54 | PROVIDERS: PCP Family Medicine; Visit Provider Family Medicine | DX: N39.0 Urinary tract infection, site not specified (principal) | CPT/HCPCS: 87077; 87086; 87088; 87186 ==

== ENCOUNTER 2023-04-06 12:25 | Day surgery (SDC) | payer MEDICARE, SELFPAY ==
[2023-04-06 12:48] VITALS: BP 169/77; PULSE 68; RESP 18; TEMP 36.3; O2SAT 97; BMI 24.9
[2023-04-06] MEDS: Lactated Ringers 1,000 ML 15 ML IV ×2 (12:57→15:05)
--- NOTE | 2023-04-06 13:55 | HP.PCM_ITS ---
History and Physical Date of Admission: 04/06/23 Intake Vital Signs 03/12/2320:28 03/16/2309:37 Height 5 ft 4 in 5 ft 4 in Weight: 143 lb 6 oz BMI 24.6 BP 136/75 H Blood Pressure Location Rt brachial Position Sitting Respiration 16 Pulse 69 Pulse Source Monitor Temp 97.7 F L Temp Source Tympanic Pulse Oximetry (%) 98 Intake Visit Reasons: ED 8-5 INGUINAL HERNIA Chief Complaint: hernia Allergies No Known Allergies Allergy (Verified 03/16/23 09:38) Medications fluoxetine 10 mg capsule 10 mg PO DAILY 02/26/22 [History Confirmed 03/16/23] lisinopril 20 mg tablet 20 mg PO DAILY 03/12/23 [History Confirmed 03/16/23] aspirin 81 mg tablet,delayed release (Adult Low Dose Aspirin) 81 mg PO DAILY 03/16/23 [History Confirmed 03/16/23] multivitamin 1 tab PO DAILY 03/16/23 [History Confirmed 03/16/23] PFSH Medical History Anxiety Depression HTN (hypertension) Pulmonary embolism Social History Smoking Status: Smoker, status unknown HPI HPI HPI: Patient is an 88-year-old female with right inguinal hernia. She was recently in the emergency room with pain and vomiting but it was reduced. She notes that since her hospitalization she has not had any right groin bulging or pain or nausea or vomiting. ROS General General: Yes fatigue; No weight change, appetite, colon cancer, breast cancer or weakness HEENT HEENT: Yes eye injury; No difficulty swallowing, eye surgery, swollen glands or hoarseness Endo Endocrine: No thyroid disease, diabetes mellitus, thyroid cancer, Hair loss, heat intolerance or cold intolerance Skin Skin: No rash or changing moles Breast Breast: No left breast lump, right breast lump, nipple discharge, breast pain, abnormal mammogram, abnormal US or breast enlargement Musc Musculoskeletal: Yes back problems; No arthritis, rheumatoid arthritis, gout or joint pain Cardio Cardiovascular: Yes high blood pressure; No murmur, pacemaker, heart disease, atrial fibrillation, heart attack, heart stent, palpitations, shortness of breat with exertion or chest pain Psych Psychiatric: No depression, anxiety or hearing voices Resp Respiratory: No shortness of breath, No sleep apnea, No cough, No COPD, No asthma, No emphysema and No wheezing Gastro Gastrointestinal: No abdominal pain, No nausea or vomiting, No diarrhea, No constipation, No blood in stool, No acid reflux, Yes hemorrhoids, No ulcers, No gallbladder problem and No black,tarry stools John Hematologic: No blood thinners, No blood disorders, No bleeding, No anemia and No blood clots Neuro Neurologic: No system reviewed and no additional complaints, except as documented, No as per HPI, No abnormal gait, No abnormal hearing, No abnormal movements, No abnormal speech, No behavioral changes, No burning sensations, No confusion, No convulsions, No disequilibrium, No dizziness, No localized weakness, No frequent falls, No headache(s), No lack of coordination, No loss of vision, No memory loss, No numbness, No other visual disturbances, No radicular pain, No restless legs, No sensory deficit, No syncope, No tingling, No tremor(s), No weakness and No other Exam Const General: cooperative Orientation: alert and oriented x3 HENMT Head: normal to inspection Neck Neck: normal visual inspection and full ROM Chest Chest palpation & inspection: normal inspection of the chest Resp Effort & Inspection: normal respiratory effort Auscultation: clear to auscultation bilaterally Cardio Rate: regular rate Rhythm: regular rhythm GI Inspection: non-distended Palpation: soft, hernia indirect inguinal on the right and nontender Skin General: no rashes or lesions noted Neuro General: patient alert and patient oriented x3 Extrem General: full ROM Psych Appearance: grossly normal Mental Status: mental status grossly normal Assessment and Plan Assessment and Plan (1) Inguinal hernia: Status: Acute Qualifiers: Obstruction and gangrene presence: without obstruction or gangrene Laterality: unilateral Recurrence: non-recurrent Qualified Code(s): K40.90 - Unilateral inguinal hernia, without obstruction or gangrene, not specified as recurrent Plan: Patient has a right inguinal hernia which contain fat on the prior CT scan. I offered the patient open inguinal hernia repair to try to minimize anesthesia is much as possible. I discussed the risks and benefits of the procedure. I discussed the risks including but not limited to bleeding, infection, injury to underlying organs or bowel, and I discussed mesh placement with her. The patient needs to travel to [place] to see her daughter soon and I advised her to repair the hernia after her trip. I advised her as to risks of incarceration and I went over how to reduce her hernia. If she has any issues while in [place] she will see a local physician. Otherwise I will schedule her for open right inguinal hernia repair with mesh when she returns from her trip and I will ask her to stop her aspirin for 5 days. Vaibhav Santos MD Pager: [facility] [address] [place] [address], [address] [place] [address] Office: I have examined the patient and the H&P has been reviewed. There are no clinical changes since date of exam.
[2023-04-06] MEDS: Cefazolin 2 GM in 0.9% Normal Saline 100 ML IV (15:07)
[2023-04-06] MEDS: Bupivacaine Mpf 0.5% 30 ML VIAL (16:01)
[2023-04-06] MEDS: Lidocaine 1% (20 ml mdv) 20 ML Vial (16:02)
[2023-04-06 16:10] VITALS: BP 139/71; BP 169/77; PULSE 80; RESP 16; TEMP 36.1; O2SAT 98
--- NOTE | 2023-04-06 16:14 | PCM.OPRPT ---
Report of Operation Date of Procedure: 04/06/23 Pre-Operative Diagnosis: Right inguinal hernia Post-Operative Diagnosis: Right inguinal hernia Surgery/Procedure Performed:: Right inguinal hernia repair with mesh Type of Anesthesia: Local MAC Specimen's removed: none Estimated Blood Loss (mL): 10 Description of Procedure: Patient is brought back to the operating room and MAC anesthesia was induced. The right groin was prepped and draped in usual sterile fashion. An incision was marked and injected with local anesthetic. Incision was made with scalpel and deepened to the external aponeurosis. A small vein was divided and suture ligation. The external aponeurosis was injected with local anesthetic and a emmy was made with a scalpel. Both edges were raised and scissors were used to open the external aponeurosis. The hernia was identified and reduced. 3-0 Vicryl sutures were used to close the tissue around the hernia. Keyhole mesh was sutured to the pubic tubercle using 2-0 PDS suture. It was then sutured to the shelving portion of the inguinal ligament using interrupted 2-0 PDS sutures. It was then tacked to the conjoined tendon medially interrupted 2-0 PDS sutures. The tails were tucked under the external aponeurosis. The area was irrigated and suctioned dry. The round ligament was divided and suture-ligated. The ilioinguinal nerve was spared and placed back over the mesh. The external aponeurosis was then reapproximated using running 3-0 Vicryl suture. Dannielle's fascia was reapproximated using interrupted 3-0 Vicryl sutures. The incision was injected once more with local anesthetic and closed with running 4-0 Monocryl suture. Dermabond glue was applied. Patient was taken to PACU in stable condition. Grafts/Implants Used: Bard keyhole mesh Admit VTE Documentation VTE Mechan Device Prophylaxis: SCD's
[2023-04-06 16:15] VITALS: BP 141/68; BP 169/77; PULSE 76; RESP 16; O2SAT 97
--- NOTE | 2023-04-06 16:18 | DCINST_ITS ---
Discharge Instructions Diet Discharge Diet: Light diet - advance as tolerated Activity Discharge Activity: May Not Drive (for 2-3 days or while taking narcotic pain meds.) and May Shower (tomorrow) Lifting Restrictions: 20 pounds for 6 weeks Additional Activity Instructions:: Climbing stairs is fine, walking is encouraged. Sitting in bed may be uncomfortable. Sitting up using your lateral muscles (sitting up sideways) is usually more comfortable. Do not drive, work heavy equipment or sign legal documents for 24 hours. If your hernia repair was an inguinal repair, you may have scrotal swelling, an ice pack and/or athletic support can provide more comfort. Pain medications may cause nausea, you should typically eat light foods as you take your pain medications. Pain medications may also cause constipation. If you have difficulty with this, discuss with your doctor. Dressing / Incision Call your doctor if your incision/area has: Continuous Slow Oozing, Sudden In creased Bleeding, Increased Pain/ Swelling, Increased Redness and Foul Smelling Discharge Call your doctor if you observe: Fever of 101 or Higher Suture Line Care: Avoid Pulling/Pushing and Avoid Pinching/Bending Cleanse incision/area with: Soap & Water Follow Up Care Please Follow Up With: Vaibhav Santos MD When: Please call to schedule 2 week follow up appointment. [phone] Test Results: Test results from this visit will be discussed in further detail at your follow- up appointment, if applicable. Discharge Plan Admission Attending Provider: Vaibhav Santos Primary Care Provider: Karen Meier Discharge Orders/Prescriptions Prescriptions: New tramadol 50 mg tablet 50 mg PO Q4H PRN (Reason: pain) 5 Days Qty: 20 0RF No Action fluoxetine 10 mg capsule 20 mg PO DAILY Patient Comments: TAKE 1 CAPSULE BY MOUTH EVERY DAY aspirin [Adult Low Dose Aspirin] 81 mg tablet,delayed release (DR/EC) 81 mg PO DAILY multivitamin Tablet 1 tab PO DAILY lisinopril 20 mg tablet 20 mg PO DAILY Patient Comments: TAKE 1 TABLET BY MOUTH EVERY DAY DO NOT TAKE WITH PROPRANOLOL propranolol 60 mg tablet 60 mg PO DAILY Patient Comments: TAKE 1 TABLET BY MOUTH EVERY DAY Referrals / Follow Up: Karen Meier MD [Primary Care Provider] - Disposition Disposition (needs filled in before D/C Order can be placed): Home, Self Care
[2023-04-06 16:20] VITALS: BP 145/68; BP 169/77; PULSE 71; RESP 16; O2SAT 96
[2023-04-06 16:25] VITALS: BP 133/64; BP 169/77; PULSE 70; RESP 16; TEMP 37.4; O2SAT 97
[2023-04-06 17:17] VITALS: BP 169/77
== END 2023-04-06 17:19 | disposition home or self-care (01) ==
LOC: SDC 12:25 → AC 12:26
PROVIDERS: PCP Family Medicine; Referring Provider Surgery; Visit Provider Surgery
PROC: (CPT 49505; principal; 2023-04-06 13:50)
DX: K40.90 Unilateral inguinal hernia, without obstruction or gangrene, not specified as recurrent (principal); I10 Essential (primary) hypertension; F41.9 Anxiety disorder, unspecified; F32.A Depression, unspecified; Z86.711 Personal history of pulmonary embolism; Z79.899 Other long term (current) drug therapy; Z79.82 Long term (current) use of aspirin; Z86.16 Personal history of COVID-19
CPT/HCPCS: 49505; 00830; 93005; J7120; C1781; J2405

== ENCOUNTER → 2023-05-20 | Outpatient (CLI) | payer MEDICARE, SELFPAY ==
[2023-05-20 10:31] LABS: Anion Gap 7 (5-15); BUN 14 mg/dL (7-18); BUN/Creat Ratio 18.3 RATIO (10-20); Calcium,Total 8.7 mg/dL (8.5-10.1); Chloride 100 mmol/L (98-107); Creatinine, Serum 0.76 mg/dL (0.55-1.02); EST Glomerular Filtration Rate 76 mL/min (>60); Est Glom Filt Rate - Afr Amer 92 mL/min (>60); Glucose 97 mg/dL (74-106); Potassium 4.5 mmol/L (3.5-5.1); Sodium Level 134 mmol/L (136-145)
== END | disposition home or self-care (01) ==
LOC: MFPLAB 09:04
PROVIDERS: Family Medicine; PCP Family Medicine; Visit Provider Family Medicine
DX: I10 Essential (primary) hypertension (principal)
CPT/HCPCS: 36415; 80048

== ENCOUNTER 2023-06-12 08:22 | Emergency (ER) | payer MEDICARE, SELFPAY ==
[2023-06-12 08:23] VITALS: BP 199/96; PULSE 64; RESP 18; TEMP 36.6; O2SAT 99; BMI 24.1
[2023-06-12 08:33] VITALS: BP 204/90; PULSE 62; RESP 16; O2SAT 98
--- NOTE | 2023-06-12 09:06 | EX.ED.DYSGE1 ---
HPI History of Present Illness Chief Complaint: Hypertension Narrative Narrative: 88-year-old female with asymptomatic hypertension. Patient states she has had blood pressures elevated in quite some time. Previously on lisinopril and metoprolol and now on propanolol 60 mg and candesartan 8 mg. Patient states her blood pressures were elevated yesterday and she called her doctor's office and states that Dr. Winters told her to double her candesartan and her propanolol last evening. She took 60 mg of propranolol in the morning and then 60 mg at 4 PM. She took 60 mg of candesartan at 6 PM. She incidentally forgot her blood pressure medicines this morning. [facility] Medical History (Updated 03/31/23 @ 13:57 by Lakesha Cuello) Anxiety Depression HTN (hypertension) Non-smoker Pulmonary embolism Wears glasses Wears hearing aid Home Medications fluoxetine 10 mg capsule 20 mg PO DAILY 02/26/22 [History Last Taken Unknown] aspirin 81 mg tablet,delayed release (Adult Low Dose Aspirin) 81 mg PO DAILY 03/16/23 [History Last Taken 04/02/23] multivitamin 1 tab PO DAILY 03/16/23 [History Last Taken Unknown] propranolol 60 mg tablet 60 mg PO DAILY 03/31/23 [History Last Taken 04/06/23] amlodipine 10 mg tablet 10 mg PO DAILY #30 tabs 06/12/23 [Rx Last Taken Unknown] candesartan 8 mg tablet 8 mg PO QHS hypertension 06/12/23 [History Last Taken Unknown] loperamide 2 mg capsule 4 mg PO PRN 06/12/23 [History Last Taken Unknown] Allergy/AdvReac Type Severity Reaction Status Date / Time tramadol Allergy Intermediate Itching Verified 06/12/23 08:25 Surgical History (Updated 03/31/23 @ 13:57 by Lakesha Cuello) History of cataract surgery Social History Smoking Status: Never smoker ROS ROS ED Constitutional Constitutional ED: Denies chills, fever(s) or sweats Eyes Eyes: Denies blurry vision or change in vision ENT ENT ED: Denies ear pain or sore throat Cardiovascular Cardiovascular: Denies chest pain, palpitations or racing heartbeat Respiratory/Chest Respiratory/Chest: Denies cough, dyspnea or sputum Gastrointestinal Gastrointestinal: Denies abdominal pain, constipation, diarrhea, nausea or vomiting Genitourinary Genitourinary ED: Denies dysuria, hematuria or urinary frequency Musculoskeletal Musculoskeletal: Denies arthralgias, myalgias or neck pain Integumentary Denies abscess, Abrasions or rash Neurologic Neurologic: Denies headache(s), paresthesias or weakness Psychiatric Psychiatric: Denies anxiety, depression, suicidal ideation or suicidal thoughts Endocrine Endocrinology: Denies polydipsia or polyuria EXAM Physical Exam Const Vital Signs: 06/12/23 08:23 06/12/23 08:31 06/12/23 08:33 Temperature 97.8 F Temperature Source Temporal Pulse Rate 64 62 Respiratory Rate 18 16 Respiratory Pattern Normal Blood Pressure 199/96 H 204/90 H Blood Pressure Mean 130 128 Pulse Ox 99 98 Oxygen Delivery Method Room Air Positive well nourished General Appearance ED: NAD HEENT Reports moist mucous membranes Eyes PERRL and EOMs intact bilaterally Neck no lymphadenopathy Chest Wall inspection of chest normal Resp normal respiratory effort and clear to auscultation bilaterally Auscultation: Negative for rales, rhonchi or wheezes Cardio regular rate and regular rhythm GI normal to inspection, nondistended, normoactive bowel sounds Neuro oriented x3 and CN's II-XII intact bilaterally Sensorium / Orientation: alert Psych mental status grossly normal Skin no rashes or lesions noted MDM MDM MDM Narrative Medical decision making narrative: 88-year-old female presenting with asymptomatic hypertension. Her initial blood pressure was 199/96. At the time of my evaluation it was 182/89 the patient states this is where she has been for several weeks. She did not take her blood pressure medicine this morning and was post to take 60 mg of propranolol as well as 8 mg of candesartan. She left her medicine at home and her daughter went to require this. I spoke with Dr. Winters who recommended in addition to the 8 mg of candesartan, 60 mg of propranolol that we had 10 mg of amlodipine daily and have her keep a blood pressure diary and follow-up in the office within next couple of days. The patient expressed concern that her primary care physician Dr. Meier wanted blood work checked because of her elevated blood pressure so we did order a CBC and CMP. Patient is completely asymptomatic. I do not believe she needs anything further. I initially ordered 10 mg of amlodipine however the patient inadvertently took a double the dose of propanolol this morning. Given this I did not give her the amlodipine. She was counseled to start amlodipine this evening with her nighttime meds. I did counseling case manager her further that she is not to double any more of her blood pressure meds now that we have added the amlodipine. She is to keep a blood pressure diary. She is to follow-up with Dr. Meier. Impression: 1. Hypertension Lab Data Attestation: I reviewed the patient's lab results. Labs: Laboratory Results - last 24 hr 06/12/23 08:40 WBC 4.8 RBC 4.03 L Hgb 12.8 Hct 39.5 MCV 98.0 MCH 31.8 MCHC 32.4 RDW Std Deviation 45.3 H RDW Coeff of [place] 12.6 Plt Count 256 MPV 8.9 Immature Gran % (Auto) 0.200 Neut % (Auto) 70.5 H Lymph % (Auto) 20.5 [place] % (Auto) 6.3 Eos % (Auto) 2.1 Baso % (Auto) 0.4 Absolute Neuts (auto) 3.4 Absolute Lymphs (auto) 0.98 Nucleated RBC % 0 Sodium 136 Potassium 4.1 Chloride 104 Carbon Dioxide 27.0 Anion Gap 5 BUN 17 Creatinine 0.65 Estim Creat Clear Calc 34.87 Est GFR (MDRD) Af Amer 110 Est GFR (MDRD) Non-Af 91 BUN/Creatinine Ratio 26.0 H Glucose 96 Calcium 8.8 Total Bilirubin 0.40 AST 21 ALT 27 Alkaline Phosphatase 68 Total Protein 6.9 Albumin 3.3 Globulin 3.6 Albumin/Globulin Ratio 0.9 Discharge Plan Triage Chief Complaint: Hypertension ED Provider: Eben Nieto Dx/Rx/DC Orders Instructions: ED High Blood Pressure Hypertension Prescriptions: New amlodipine 10 mg tablet 10 mg PO DAILY Qty: 30 0RF No Action fluoxetine 10 mg capsule 20 mg PO DAILY Patient Comments: TAKE 1 CAPSULE BY MOUTH EVERY DAY aspirin [Adult Low Dose Aspirin] 81 mg tablet,delayed release (DR/EC) 81 mg PO DAILY multivitamin Tablet 1 tab PO DAILY propranolol 60 mg tablet 60 mg PO DAILY Patient Comments: TAKE 1 TABLET BY MOUTH EVERY DAY candesartan 8 mg tablet 8 mg PO QHS Patient Comments: TAKE 1 TABLET BY MOUTH EVERY DAY loperamide 2 mg capsule 4 mg PO PRN Patient Comments: TAKE 2 CAPSULES BY MOUTH 4 TIMES A DAY NEEDED Primary Care Provider: Karen Meier Referrals: Karen Meier MD [Primary Care Provider] - Disposition Disposition: Home, Self Care
[2023-06-12 10:01] LABS: Absolute Lymphocyte Count 0.98 X10^3/uL (0.83-4.51); Absolute Neutrophil Count 3.4 X10^3/uL (2.0-7.7); Basophil# 0.02 X10^3/uL; Basophil% 0.4 % (0-1); Eosinophils% 2.1 % (0-5); Hematocrit 39.5 % (37-47); Hemoglobin 12.8 g/dL (12.0-15.0); Lymphocyte # 0.98 X10^3/ul (0.83-4.51); Lymphocyte % 20.5 % (19-41); Mean Corp Hgb Conc 32.4 g/dL (32-36); Mean Corpuscular Hgb 31.8 pg (27.0-32.0); Mean Platelet Vol. 8.9 fl (6.2-12.0); Monocyte% 6.3 % (0-10); NRBC Flagged by Analyzer 0 % (0-5); Neutrophil # 3.36 X10^3/uL (2.7-7.7); Neutrophil % 70.5 % (47-70); Platelet Count 256 K/mm3 (150-450); RBC Distribution Width CV 12.6 % (11.6-14.6); RBC Distribution Width SD 45.3 fl (35.1-43.9); Red Blood Count 4.03 M/mm3 (4.2-5.4); White Blood Count 4.8 K/mm3 (4.4-11.0)
[2023-06-12 10:09] LABS: ALB/GLOB Ratio 0.9 RATIO (0.9-2.4); AST(SGOT) 21 U/L (15-37); Alanine Aminotransfer ALT/SGPT 27 U/L (13-56); Albumin, Serum 3.3 g/dL (3.2-5.0); Alkaline Phosphatase 68 U/L (45-117); Anion Gap 5 (5-15); BUN 17 mg/dL (7-18); Calcium,Total 8.8 mg/dL (8.5-10.1); Chloride 104 mmol/L (98-107); Creatinine, Serum 0.65 mg/dL (0.55-1.02); EST Glomerular Filtration Rate 91 mL/min (>60); Est Glom Filt Rate - Afr Amer 110 mL/min (>60); Estimated Creatinine Clearance 34.87 ml/min; Globulin 3.6 g/dL (2.2-4.2); Glucose 96 mg/dL (74-106); Potassium 4.1 mmol/L (3.5-5.1); Protein, Total 6.9 g/dL (6.4-8.2); Sodium Level 136 mmol/L (136-145)
== END 2023-06-12 10:57 | disposition home or self-care (01) ==
PROVIDERS: Emergency Provider Student in an Organized Health Care Education/Training Program; PCP Family Medicine; Visit Provider Student in an Organized Health Care Education/Training Program
DX: I10 Essential (primary) hypertension (principal); F41.9 Anxiety disorder, unspecified; F32.A Depression, unspecified; Z86.711 Personal history of pulmonary embolism; Z79.899 Other long term (current) drug therapy; Z79.82 Long term (current) use of aspirin
CPT/HCPCS: 80053; 85025; 99282; A4216

== ENCOUNTER → 2023-11-29 | Outpatient (CLI) | payer MEDICARE, SELFPAY ==
--- NOTE | 2023-11-29 10:48 | RAD_ITS ---
EXAM: XR CHEST, 2 VIEWS CLINICAL INDICATION: short of breath TECHNIQUE: Frontal and lateral views of the chest. COMPARISON: No relevant prior studies available. FINDINGS: LUNGS AND PLEURAL SPACES: Unremarkable. No pleural effusion or pneumothorax. No consolidation. HEART: Unremarkable. Cardiac silhouette not enlarged. MEDIASTINUM: No other cardiomediastinal or hilar abnormalities. BONES/JOINTS: Degenerative changes of spine. No acute fracture. SOFT TISSUES: Unremarkable. 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 S-shaped curvature of the spine to include leftward curvature of the lumbar spine centered at L2. UPPER ABDOMEN: Eventration along the right hemidiaphragm. RAD/Chest PA and Lateral IMPRESSION: No acute disease. Electronically Signed: Girish Apple MD at 18:06 EDT ,
[2023-11-29 12:26] LABS: Absolute Lymphocyte Count 0.85 X10^3/uL (0.83-4.51); Absolute Neutrophil Count 3.7 X10^3/uL (2.0-7.7); Basophil# 0.02 X10^3/uL; Basophil% 0.4 % (0-1); Eosinophil# 0.13 X10^3/uL; Eosinophils% 2.6 % (0-5); Hematocrit 36.6 % (37-47); Hemoglobin 12.2 g/dL (12.0-15.0); Lymphocyte # 0.85 X10^3/ul (0.83-4.51); Lymphocyte % 16.7 % (19-41); Mean Corp Hgb Conc 33.3 g/dL (32-36); Mean Corpuscular Hgb 32.2 pg (27.0-32.0); Mean Corpuscular Volume 96.6 fL (81-99); Mean Platelet Vol. 8.8 fl (6.2-12.0); Monocyte# 0.33 X10^3/uL; Monocyte% 6.5 % (0-10); NRBC Flagged by Analyzer 0 % (0-5); Neutrophil # 3.73 X10^3/uL (2.7-7.7); Neutrophil % 73.4 % (47-70); Platelet Count 285 K/mm3 (150-450); RBC Distribution Width CV 12.1 % (11.6-14.6); RBC Distribution Width SD 42.7 fl (35.1-43.9); Red Blood Count 3.79 M/mm3 (4.2-5.4); White Blood Count 5.1 K/mm3 (4.4-11.0)
[2023-11-29 12:47] LABS: AST(SGOT) 23 U/L (15-37); Alanine Aminotransfer ALT/SGPT 21 U/L (13-56); Albumin, Serum 3.6 g/dL (3.2-5.0); Alkaline Phosphatase 76 U/L (45-117); Anion Gap 6 (5-15); BUN 14 mg/dL (7-18); BUN/Creat Ratio 18.3 RATIO (10-20); Chloride 104 mmol/L (98-107); Creatinine, Serum 0.76 mg/dL (0.55-1.02); EST Glomerular Filtration Rate 76 mL/min (>60); Est Glom Filt Rate - Afr Amer 92 mL/min (>60); Globulin 3.6 g/dL (2.2-4.2); Glucose 100 mg/dL (74-106); Potassium 4.3 mmol/L (3.5-5.1); Protein, Total 7.2 g/dL (6.4-8.2); Sodium Level 137 mmol/L (136-145)
[2023-11-29 12:51] LABS: BNP,B-Type NATRIURETIC PEPTIDE 190.6 pg/mL (0-100)
== END | disposition home or self-care (01) ==
LOC: MTLAB 10:48
PROVIDERS: PCP Family Medicine; Referring Provider Family Medicine; Visit Provider Family Medicine
DX: R06.02 Shortness of breath (principal)
CPT/HCPCS: 36415; 71046; 80053; 83880; 85025

== ENCOUNTER → 2024-01-25 | Outpatient (CLI) | payer MEDICARE, SELFPAY ==
[2024-01-25 13:27] LABS: CRP 3.53 mg/L (0.0-3.0)
[2024-01-26 15:12] LABS: Endomysial Antibody IgA Negative (Negative); Immunoglobulin A 407 mg/dL (64-422); t-Transglutaminase IgA <2 U/mL (0-3)
== END | disposition home or self-care (01) ==
LOC: MTLAB 10:46
PROVIDERS: PCP Family Medicine; Referring Provider Internal Medicine Gastroenterology; Visit Provider Internal Medicine Gastroenterology
DX: R19.7 Diarrhea, unspecified (principal)
CPT/HCPCS: 36415; 82784; 83516; 86140; 86255

== ENCOUNTER → 2024-01-27 | Outpatient (CLI) | payer MEDICARE, SELFPAY ==
[2024-02-06 04:06] LABS: Pancreatic Elastase, Fecal 186 (>200)
[2024-02-06 20:08] LABS: Fats, Neutral Normal (.); Fats, Total Normal (.)
== END | disposition home or self-care (01) ==
LOC: MTLAB 13:08
PROVIDERS: PCP Family Medicine; Referring Provider Internal Medicine Gastroenterology; Visit Provider Internal Medicine Gastroenterology
DX: R19.7 Diarrhea, unspecified (principal)
CPT/HCPCS: 82653; 82705

== ENCOUNTER 2024-04-25 10:30 | Outpatient (RCR) | payer MEDICARE, SELFPAY ==
--- NOTE | 2024-06-12 07:23 | HP.PTDCSUM ---
Discharge Summary D/C summary: It has been my pleasure to treat SONYA DE LA CRUZ referred by Dr. Karen Meier MD, with the diagnosis of Lumbar strain for a total of 8 visit(s). Discharge Date: 04/25/24 Please see the following information for a summary of their discharge status. Subjective Subjective: Pt was on her feet a lot yesterday Pain R sided back pain: Pain Intensity (Out of 10): 1 Overall Improvement % Improvement: 50 Objective Objective/Function: Pt understands her HEP and we went over using the seated hip abd machine and HS curl machine. We went over verbally the leg ext and seated leg press. Goals Goal 1:: I HEP Goal Progress: Goal Met Goal 2:: Increase LE strength (at the time of the eval: R flex 12.2 and L hip flex 9.4 R knee ext 12.2 and L 8.9 R knee flex 6.8 and L 7.2 R hip abd 8.4 and L 7.5). Goal 3:: Be able to walk for 20 min without having back pain Goal Progress: Not Progressing Goal 4:: Be able to go up and down the step recip with 1 hand rail without any signs of weakness Goal Progress: Progressing Plan Plan: DC PT to HEP D/C Information Discharge Comments: DC PT to Hep d/c sentence: If there are questions or concerns regarding this patient's physical therapy, please feel free to call me at [phone]. Thank you for the referral of this patient. Sincerely, Misty Lopez, MPT Balance/Gait/Functional tests Balance/Special Test Scores Oswestry Low Back Score: 15 Improvement % Improvement: 50
== END 2024-04-25 19:00 | disposition home or self-care (01) ==
LOC: PT 10:30
PROVIDERS: PCP Family Medicine; Referring Provider Family Medicine; Visit Provider Family Medicine
DX: S39.012D Strain of muscle, fascia and tendon of lower back, subsequent encounter (principal)
CPT/HCPCS: 97110; 97140; 97162

== ENCOUNTER → 2024-08-07 | Outpatient (CLI) | payer MEDICARE, OTHER, SELFPAY ==
[2024-08-07 17:14] LABS: Anion Gap 5 (5-15); BUN 16 mg/dL (7-18); BUN/Creat Ratio 23.7 RATIO (10-20); Calcium,Total 9.2 mg/dL (8.5-10.1); Chloride 102 mmol/L (98-107); Cholesterol 233 mg/dL (200); Creatinine, Serum 0.68 mg/dL (0.55-1.02); EST Glomerular Filtration Rate 88 mL/min (>60); Est Glom Filt Rate - Afr Amer 106 mL/min (>60); Glucose 91 mg/dL (74-106); High Density Lipoprotein 68 mg/dL; Potassium 4.1 mmol/L (3.5-5.1); Sodium Level 136 mmol/L (136-145); Triglycerides 182 mg/dL; Very Low Density Lipoprotein 36 mg/dL (5-40)
== END | disposition home or self-care (01) ==
LOC: MFPLAB 13:56
PROVIDERS: PCP Family Medicine; Referring Provider Family Medicine; Visit Provider Family Medicine
DX: I10 Essential (primary) hypertension (principal)
CPT/HCPCS: 36415; 80048; 80061

== ENCOUNTER → 2025-04-17 | Outpatient (CLI) | payer OTHER, SELFPAY ==
[2025-04-23 08:08] LABS: Calprotectin, Stool 59 ug/g (0-120)
== END | disposition home or self-care (01) ==
LOC: LABSPEC 16:18
PROVIDERS: PCP Family Medicine; Referring Provider Nurse Practitioner Acute Care; Visit Provider Nurse Practitioner Acute Care
DX: K58.9 Irritable bowel syndrome, unspecified (principal); R19.7 Diarrhea, unspecified
CPT/HCPCS: 83993; 87506